=== PATIENT | male | born 1985 | race African-American/Black ===

== ENCOUNTER 2017-07-08 12:08 | Emergency (ER) | payer SELFPAY ==
[~2017-07-08] VITALS: Ht 170.2 cm; Wt 65.0 kg
[2017-07-08 18:00] LABS: BASOPHILS % 0.3 % (0.0-2.0); EOSINOPHILS % 0.5 % (0.0-5.0); HEMATOCRIT. 40.4 % (42.0-52.0); HEMOGLOBIN. 13.7 g/dL (14.0-18.0); MEAN CORPUSCULAR HEMOGLOBIN 31.2 pg (28.0-32.0); MEAN CORPUSCULAR VOLUME 91.9 fL (80.0-94.0); MEAN PLATELET VOLUME 9.3 fl (7.4-10.4); MONOCYTES % 5.3 % (2.0-8.0); NEUTROPHILS % 66.9 % (40.0-76.0); PLATELET 221 x1000/uL (130-400); RED BLOOD CELL COUNT 4.39 mill/uL (4.7-6.1); RED CELL DISTRIBUTION WIDTH 12.9 % (11.6-14.6)
[2017-07-08 18:03] LABS: CHLORIDE 104 mEq/L (98-107); INR 1.1; PROTHROMBIN TIME 11.3 sec (9.4-11.6)
[2017-07-08 18:08] LABS: CARBON DIOXIDE 31 mEq/L (21-32)
[2017-07-08] MEDS ORDERED: IOHEXOL-300 100 ML BOTTLE ONE (19:42)
[2017-07-08 20:27] LABS: CLARITY URINE CLEAR (CLEAR); COLOR URINE YELLOW (YELLOW); KETONES URINE NEGATIVE (NEGATIVE); LEUKOCYTE ESTERASE URINE NEGATIVE (NEGATIVE); NITRITE URINE NEGATIVE (NEGATIVE); OCCULT BLOOD URINE NEGATIVE (NEGATIVE); PROTEIN URINE NEGATIVE (NEGATIVE); SPECIFIC GRAVITY URINE 1.018 (1.005-1.030)
[2017-07-08] MEDS ORDERED: LIDOCAINE HCL 1% 20ML VIAL (Pyxis) INJ MC ONE (20:45)
[2017-07-08 22:37] VITALS: BP 122/82
== END 2017-07-08 22:39 | disposition home or self-care (01) ==
LOC: ER 13:18
DX: L02.214 Cutaneous abscess of groin (principal); K40.90 Unilateral inguinal hernia, without obstruction or gangrene, not specified as recurrent; R59.9 Enlarged lymph nodes, unspecified
CPT/HCPCS: 10060; 36415; 74177; 76857; 80053; 81003; 85025; 85610; 87070; 87205; 99285; J3490; Q9967; Z7610

== ENCOUNTER 2022-04-23 01:54 | Emergency (ER) | payer BC ==
[~2022-04-23] VITALS: Ht 170.2 cm; Wt 59.0 kg
[2022-04-23] MEDS ORDERED: AMOXICILLIN/POTASSIUM CLAVULANATE 875/125MG TAB PO ONE (03:15)
[2022-04-23] MEDS ORDERED: HYDROCODONE/ACETAMINOPHEN 10/325MG TABLET PO ONE (03:15)
[2022-04-23] MEDS ORDERED: AMOX1TAB16 MT (04:55)
[2022-04-23 05:41] VITALS: BP 141/88
== END 2022-04-23 05:00 | disposition home or self-care (01) ==
LOC: ER 01:54
DX: S01.05XA Open bite of scalp, initial encounter (principal); S61.451A Open bite of right hand, initial encounter; M95.11 Cauliflower ear, right ear; R03.0 Elevated blood-pressure reading, without diagnosis of hypertension; Y07.430 Stepfather, perpetrator of maltreatment and neglect; Y04.8XXA Assault by other bodily force, initial encounter; W54.0XXA Bitten by dog, initial encounter; Y93.89 Activity, other specified; Y92.018 Other place in single-family (private) house as the place of occurrence of the external cause
CPT/HCPCS: 10060; 70450; 99284; Z7610